=== PATIENT | male | born 1960 | race African-American/Black ===

== ENCOUNTER 2017-12-29 20:26 | Emergency (ER) | payer OTHER ==
--- NOTE | 2017-12-29 20:50 | PDOC ---
Rapid Medical Evaluation Time Seen by Provider: 12/29/17 20:45 Medical Evaluation: Allergies Allergy/AdvReac Type Severity Reaction Status Date / Time Penicillins AdvReac Nausea Verified 10/27/15 14:16 12/29/17 20:45 This patient had a brief in-person evaluation by me The patient has a chief complaint of: insect removed from abdomen states he has another insect on his abdomen The pertinent physical findings are: nad even and unlabored breathing skin with dark lesion under skin The following orders have been placed: none This patient will proceed to the ED for further evaluation. Discharge Disposition - Referrals Referrals: El Jimenez [Primary Care Provider] - - Patient Instructions - Post Discharge Activity
[2017-12-29 20:53] VITALS: BP 142/86; PULSE 91; TEMP 98.7; BMI 34.1
[2017-12-29] MEDS ORDERED: DOXYCYCLINE HYCLATE 100 MG CAPSULE PO ONE ×2 (21:24→21:30)
--- NOTE | 2017-12-29 21:30 | PDOC ---
History of Present Illness - General Chief Complaint: Bite Stated Complaint: BITE Time Seen by Provider: 12/29/17 20:45 - History of Present Illness Initial Comments: 12/29/17 21:27 57-year-old male with a past medical history significant for diabetes and hypertension presents for evaluation of a tick bite. He states the bite occurred today on the anterior aspect of his abdomen Past History - Past Medical History Allergies/Adverse Reactions: Allergies Allergy/AdvReac Type Severity Reaction Status Date / Time Penicillins AdvReac Nausea Verified 12/29/17 20:53 Home Medications: Ambulatory Orders Cyclobenzaprine HCl [Flexeril -] 10 mg PO HS #7 tablet 10/27/15 Naproxen [Naprosyn -] 500 mg PO BID #14 tablet 10/27/15 COPD: No Diabetes: Yes HTN: Yes - Suicide/Smoking/Psychosocial Hx Smoking History: Never smoked Have you smoked in the past 12 months: No Information on smoking cessation initiated: No Hx Alcohol Use: No Drug/Substance Use Hx: No Substance Use Type: None Review of Systems - Review of Systems Integumentary: Yes: See HPI All Other Systems: Reviewed and Negative *Physical Exam - Vital Signs Last Vital Signs Temp Pulse Resp BP Pulse Ox 98.7 F 91 H 17 142/86 100 12/29/17 20:50 12/29/17 20:50 12/29/17 20:50 12/29/17 20:50 12/29/17 20:50 - Physical Exam Comments: There is a superficial laceration on the anterior aspect of the abdomen. About the epigastric area. There is some scarring present as well. In a small crater the remainder of the abdomen is benign 12/29/17 21:28 Medical Decision Making - Medical Decision Making Patient brings in a envelope with a small bug in it I do not know what kind of bug this is. He states there was another bout on there that is not in the envelope. I will treat him with a prophylactic dose of doxycycline and have him follow-up with his primary care physician. 12/29/17 21:28 *DC/Admit/Observation/Transfer Diagnosis at time of Disposition: Tick bite of abdomen - Discharge Dispostion Disposition: HOME Condition at time of disposition: Stable Decision to Admit order: No - Referrals Referrals: El Jimenez [Primary Care Provider] - - Patient Instructions Printed Discharge Instructions: How to Care for an Insect Bite or Sting Additional Instructions: You treated today with a prophylactic dose of doxycycline. Please follow-up with your primary care provider once 2 days further evaluation and treatment options. He should not require any further treatment. - Post Discharge Activity
== END 2017-12-29 21:33 | disposition home or self-care (01) ==
LOC: JERFT 20:26
DX: S30.861A Insect bite (nonvenomous) of abdominal wall, initial encounter (principal); W57.XXXA Bitten or stung by nonvenomous insect and other nonvenomous arthropods, initial encounter; Y93.89 Activity, other specified; Y92.89 Other specified places as the place of occurrence of the external cause; E11.9 Type 2 diabetes mellitus without complications; I10 Essential (primary) hypertension
CPT/HCPCS: 99281-25

== ENCOUNTER 2020-06-05 08:34 | Emergency (ER) | payer OTHER ==
[2020-06-05 08:50] VITALS: BP 128/78; PULSE 99; TEMP 98.5; BMI 33.6
[2020-06-05] MEDS ORDERED: PHENYLEPHRINE HCL 10 MG/1 ML SINGLE DOSE VIAL NR ONE (09:19)
[2020-06-05] MEDS ORDERED: LIDOCAINE HCL 2% (50ML VIAL) SQ ONE (09:24)
[2020-06-05] MEDS ORDERED: PHENYLEPHRINE HCL 10 MG/1 ML SINGLE DOSE VIAL ONE (09:31)
[2020-06-05] MEDS ORDERED: LIDOCAINE HCL 2% (20ML MULTI-DOSE VIAL) ONE (09:43)
[2020-06-05] MEDS ORDERED: ACETAMINOPHEN 500 MG TABLET (FP) PO ONE (11:57)
== END 2020-06-05 12:09 | disposition home or self-care (01) ==
LOC: JER 08:34
DX: N48.39 Other priapism (principal)
CPT/HCPCS: 76857; 99283-25

== ENCOUNTER 2022-06-04 14:12 | Emergency (ER) | payer OTHER ==
[2022-06-04 14:43] VITALS: BP 125/80; PULSE 106; RESP 20; TEMP 97.1; BMI 30.1
[2022-06-04] MEDS ORDERED: METOCLOPRAMIDE HCL 10 MG TABLET (FP) PO ONE ×2 (15:39→15:43)
[2022-06-04] MEDS ORDERED: PANTOPRAZOLE 40 MG TABLET PO ONE ×2 (15:39→15:43)
== END 2022-06-04 17:12 | disposition home or self-care (01) ==
LOC: JERFT 14:12 → JER 14:12 → JERFT 17:12
DX: R06.6 Hiccough (principal)
CPT/HCPCS: 93005; 93010; 99283-25

== ENCOUNTER 2023-10-14 19:28 | Emergency (ER) | payer OTHER ==
[2023-10-14 19:35] VITALS: BP 115/76; PULSE 110; RESP 16; TEMP 99.1; BMI 31.7
[2023-10-14] MEDS: chlorproMAZINE HCL 25 MG TABLET PO ONE (21:10)
== END 2023-10-14 21:12 | disposition home or self-care (01) ==
LOC: JER 19:28
DX: R06.6 Hiccough (principal)
CPT/HCPCS: 99283-25

== ENCOUNTER 2023-11-04 17:15 | Emergency (ER) | payer OTHER ==
[2023-11-04 17:26] VITALS: BP 124/71; PULSE 97; RESP 18; TEMP 98.5; BMI 33.0
[2023-11-04] MEDS ORDERED: chlorproMAZINE HCL 25 MG/1 ML AMP ONE (18:49)
== END 2023-11-04 19:36 | disposition left against medical advice (07) ==
LOC: JERFT 17:15
PROC: 3E023GC Introduction of Other Therapeutic Substance into Muscle, Percutaneous Approach (ICD-10-PCS; principal; 2023-11-04)
DX: R06.6 Hiccough (principal)
CPT/HCPCS: 93005; 93010; 99284-25

== ENCOUNTER 2024-04-23 07:39 | Emergency (ER) | payer OTHER ==
[2024-04-23 07:59] VITALS: BP 117/71; PULSE 63; RESP 18; TEMP 100.6; BMI 31.3
[2024-04-23] MEDS ORDERED: ONDANSETRON 4 MG TABLET PO ONE (09:39)
[2024-04-23] MEDS ORDERED: FAMOTIDINE 20 MG TABLET ONE (09:39)
[2024-04-23] MEDS: ONDANSETRON 4 MG TABLET PO ONE (09:41)
[2024-04-23] MEDS: FAMOTIDINE 20 MG TABLET PO ONE (09:41)
== END 2024-04-23 12:05 | disposition home or self-care (01) ==
LOC: JERFT 07:39 → JER 07:39 → JERFT 12:05
DX: J10.1 Influenza due to other identified influenza virus with other respiratory manifestations (principal); R10.13 Epigastric pain; R06.6 Hiccough; R11.0 Nausea; Z20.822 Contact with and (suspected) exposure to COVID-19
CPT/HCPCS: 0241U-QW; 71046-TC-FY; 99284-25